=== PATIENT | male | born 1970 | race Hispanic/Latino ===

== ENCOUNTER 2021-06-22 22:37 | Inpatient (IN) | payer OTHER, SELFPAY ==
[~2021-06-22] VITALS: Ht 167.6 cm; Wt 83.3 kg
[2021-06-22 22:45] VITALS: BP 135/91
[2021-06-22] MEDS ORDERED: AZITHROMYCIN 500MG VIAL IVPB ONE (23:30)
[2021-06-22] MEDS ORDERED: CEFTRIAXONE 1G VIAL IVP ONE (23:30)
[2021-06-22] MEDS ORDERED: DEXAMETHASONE SOD PHOSPHATE 4 MG/ML 1ML VIAL IVP SCH (23:30)
[2021-06-22] MEDS ORDERED: 0.9% NACL 250ML IVPB ONE (23:30)
[2021-06-22 23:54] LABS: BASOPHILS % (AUTO) 0.4 % (0.0-5.0); EOSINOPHILS % (AUTO) 0.4 % (0.0-8.0); HEMATOCRIT 46.2 % (42-54); LYMPHOCYTES % (AUTO) 12.6 % (21.0-51.0); MEAN CORPUSCULAR HEMOGLOBIN 31.5 pg (27.0-33.0); MEAN CORPUSCULAR HGB CONC 34.6 g/dL (32.0-36.0); MEAN CORPUSCULAR VOLUME 90.9 fL (79-99); MONOCYTES % (AUTO) 10.3 % (3.0-13.0); NEUTROPHILS % (AUTO) 74.3 % (40.0-77.0); PLATELET COUNT (AUTO) 576 K/uL (130-400); RED BLOOD CELL COUNT(AUTO) 5.08 MIL/uL (4.50-6.20); RED CELL DISTRIBUTION WIDTH 11.9 % (11.0-15.5); WHITE BLOOD COUNT (AUTO) 7.5 K/uL (4.8-10.8)
[2021-06-23] VITALS (12 sets, daily range): BP systolic 112–145; BP diastolic 72–88
[2021-06-23 00:09] LABS: INR 1.07 (0.85-1.15); PROTHROMBIN TIME 11.6 SEC (9.6-11.6)
[2021-06-23 00:10] LABS: PARTIAL THROMBOPLASTIN TIME 22.8 SEC (26.3-35.5)
[2021-06-23] MEDS ORDERED: AZITHROMYCIN 500MG+NS 250ML 250 ML IV ONE (00:11)
[2021-06-23 00:13] LABS: ALBUMIN 2.8 g/dL (3.5-5.0); BILIRUBIN,TOTAL 0.6 mg/dL (0.2-1.0); CREATININE 0.7 mg/dL (0.5-1.5); POTASSIUM 4.5 mmol/L (3.5-5.1); TOTAL PROTEIN, SERUM 7.8 g/dL (6.0-8.3)
[2021-06-23 00:20] LABS: B-TYPE NATRIURETIC PEPTIDE < 5 pg/mL (0-100)
[2021-06-23 03:24] LABS: ABG BASE EXCESS 1.4 mmol/L (-2.0-3.0); ABG HCO3 24.3 mmol/L (21.0-28.0); ABG OXYGEN SATURATION 91.9 % (95.0-99.0); ABG PCO2 34 mmHg (35-48)
[2021-06-23] MEDS ORDERED: CEFTRIAXONE 1G VIAL IVP SCH (03:30)
[2021-06-23] MEDS ORDERED: PHARMACY COMMUNICATION MISC SCH (03:30)
[2021-06-23] MEDS ORDERED: ERGOCALCIFEROL (VITAMIN D2) 50,000 UNIT CAPSULE PO ONE (03:30)
[2021-06-23] MEDS ORDERED: 0.9%NACL 1000ML 1,000 ML IV SCH ×2 (03:30)
[2021-06-23] MEDS ORDERED: ERGOCALCIFEROL (VITAMIN D2) 50,000 UNIT CAPSULE ONE (04:47)
[2021-06-23] MEDS: DOXYCYCLINE 100MG+NS 250ML IV SCH ×2 (05:04→14:57)
[2021-06-23] MEDS ORDERED: ALBUTEROL INHALER 90MCG/INH IH ONE (05:04)
[2021-06-23] MEDS: DEXAMETHASONE SOD PHOSPHATE 4 MG/ML 1ML VIAL IVP SCH (05:04)
[2021-06-23] MEDS: ALBUTEROL INHALER 90MCG/INH IH SCH ×5 (05:04→23:11)
[2021-06-23] MEDS ORDERED: PHARMACY COMMUNICATION MISC STA (06:59)
[2021-06-23] MEDS ORDERED: COMPOUND IV REFRIGERATED 1 EACH IVSOLN MISC PRN (08:00)
[2021-06-23] MEDS ORDERED: REMDESIVIR (EUA) 520 200 MG in 0.9% NACL 250ML 250 ML IV ONE (08:00)
[2021-06-23 08:29] LABS: APPEARANCE,URINE Clear (CLEAR); BILIRUBIN,URINE Negative (NEGATIVE); COLOR,URINE Yellow (YELLOW); GLUCOSE, URINE (UA) Negative (NEGATIVE); KETONES,URINE 40 mg/dL (NEGATIVE); LEUKOCYTE ESTERASE ,URINE Negative (NEGATIVE); NITRATE,URINE Negative (NEGATIVE); OCCULT BLOOD,URINE Negative (NEGATIVE); PH,URINE 6.5 (5.0-8.0); PROTEIN,URINE Negative (NEGATIVE)
[2021-06-23 08:34] LABS: BACTERIA,URINE Rare /HPF (None Seen); MUCUS,URINE Rare LPF (None Seen); RBC,URINE 0-1 /HPF (0-1); SQUAMOUS EPITHELIAL CELL,UR Rare /HPF (0-2); WBC,URINE 0-1 /HPF (0-1)
[2021-06-23 09:30] LABS: CRP QUANTITATIVE 39.1 mg/L (0.00-9.0)
[2021-06-23] MEDS: ENOXAPARIN SODIUM 40 MG/0.4 ML SYRINGE SQ SCH (10:59)
[2021-06-23] MEDS: FAMOTIDINE 20MG TAB PO SCH (10:59)
[2021-06-23] MEDS: ASCORBIC ACID 500 MG TAB PO SCH (10:59)
[2021-06-23] MEDS: ZINC SULFATE 220 CAPSULE PO SCH (10:59)
[2021-06-24] VITALS (10 sets, daily range): BP systolic 109–133; BP diastolic 65–86
[2021-06-24] MEDS: DEXAMETHASONE SOD PHOSPHATE 4 MG/ML 1ML VIAL IVP SCH (03:23)
[2021-06-24] MEDS: DOXYCYCLINE 100MG+NS 250ML IV SCH (03:23)
[2021-06-24] MEDS: ALBUTEROL INHALER 90MCG/INH IH SCH ×3 (06:20→19:25)
[2021-06-24] MEDS: ZINC SULFATE 220 CAPSULE PO SCH (07:56)
[2021-06-24] MEDS: ASCORBIC ACID 500 MG TAB PO SCH (07:56)
[2021-06-24] MEDS: FAMOTIDINE 20MG TAB PO SCH (07:56)
[2021-06-24] MEDS: ENOXAPARIN SODIUM 40 MG/0.4 ML SYRINGE SQ SCH (07:57)
[2021-06-24] MEDS ORDERED: PHARMACY COMMUNICATION-LABS AST AND ALT PLEASE MISC STA (08:19)
[2021-06-24 08:51] LABS: BASOPHILS % (AUTO) 0.2 % (0.0-5.0); HEMATOCRIT 41.7 % (42-54); LYMPHOCYTES % (AUTO) 13.6 % (21.0-51.0); MEAN CORPUSCULAR HEMOGLOBIN 31.3 pg (27.0-33.0); MEAN CORPUSCULAR HGB CONC 34.1 g/dL (32.0-36.0); MEAN CORPUSCULAR VOLUME 92.1 fL (79-99); MONOCYTES % (AUTO) 4.2 % (3.0-13.0); NEUTROPHILS % (AUTO) 80.3 % (40.0-77.0); PLATELET COUNT (AUTO) 571 K/uL (130-400); RED BLOOD CELL COUNT(AUTO) 4.53 MIL/uL (4.50-6.20); RED CELL DISTRIBUTION WIDTH 12.1 % (11.0-15.5); WHITE BLOOD COUNT (AUTO) 8.2 K/uL (4.8-10.8)
[2021-06-24 09:07] LABS: ALBUMIN 2.6 g/dL (3.5-5.0); BILIRUBIN,TOTAL 0.5 mg/dL (0.2-1.0); CREATININE 0.8 mg/dL (0.5-1.5); CRP QUANTITATIVE 17.8 mg/L (0.00-9.0); POTASSIUM 4.1 mmol/L (3.5-5.1); TOTAL PROTEIN, SERUM 6.5 g/dL (6.0-8.3)
[2021-06-24] MEDS: REMDESIVIR (EUA) 520 100 MG in 0.9% NACL 250ML 250 ML IV SCH (12:45)
[2021-06-24] MEDS: REMDESIVIR LABS MISC SCH (19:29)
[2021-06-25] VITALS (14 sets, daily range): BP systolic 102–138; BP diastolic 5–84
[2021-06-25] MEDS: DEXAMETHASONE SOD PHOSPHATE 4 MG/ML 1ML VIAL IVP SCH (03:36)
[2021-06-25] MEDS: ALBUTEROL INHALER 90MCG/INH IH SCH ×5 (05:49→23:54)
[2021-06-25] MEDS: REMDESIVIR LABS MISC SCH (05:50)
[2021-06-25 06:30] LABS: BASOPHILS % (AUTO) 0.2 % (0.0-5.0); EOSINOPHILS % (AUTO) 0.2 % (0.0-8.0); MEAN CORPUSCULAR HEMOGLOBIN 31.8 pg (27.0-33.0); MEAN CORPUSCULAR HGB CONC 34.6 g/dL (32.0-36.0); MEAN CORPUSCULAR VOLUME 91.9 fL (79-99); NEUTROPHILS % (AUTO) 78.8 % (40.0-77.0); PLATELET COUNT (AUTO) 551 K/uL (130-400); RED BLOOD CELL COUNT(AUTO) 4.46 MIL/uL (4.50-6.20); RED CELL DISTRIBUTION WIDTH 11.9 % (11.0-15.5); WHITE BLOOD COUNT (AUTO) 8.6 K/uL (4.8-10.8)
[2021-06-25] MEDS ORDERED: [UNRECOGNIZED DRUG - OTHER] MISC STA (06:48)
[2021-06-25 06:49] LABS: ALBUMIN 2.5 g/dL (3.5-5.0); BILIRUBIN,TOTAL 0.5 mg/dL (0.2-1.0); CREATININE 0.8 mg/dL (0.5-1.5); POTASSIUM 4.3 mmol/L (3.5-5.1); TOTAL PROTEIN, SERUM 6.3 g/dL (6.0-8.3)
[2021-06-25] MEDS: FAMOTIDINE 20MG TAB PO SCH (09:02)
[2021-06-25] MEDS: ASCORBIC ACID 500 MG TAB PO SCH (09:02)
[2021-06-25] MEDS: ENOXAPARIN SODIUM 40 MG/0.4 ML SYRINGE SQ SCH ×2 (09:02→19:57)
[2021-06-25] MEDS: ZINC SULFATE 220 CAPSULE PO SCH (09:02)
[2021-06-25] MEDS: REMDESIVIR (EUA) 520 100 MG in 0.9% NACL 250ML 250 ML IV SCH (13:05)
[2021-06-26] MEDS: DEXAMETHASONE SOD PHOSPHATE 4 MG/ML 1ML VIAL IVP SCH (03:58)
[2021-06-26] MEDS: REMDESIVIR LABS MISC SCH (04:22)
[2021-06-26 04:28] VITALS: BP 110/69
[2021-06-26 05:19] LABS: BASOPHILS % (AUTO) 0.3 % (0.0-5.0); EOSINOPHILS % (AUTO) 0.7 % (0.0-8.0); HEMATOCRIT 38.1 % (42-54); LYMPHOCYTES % (AUTO) 27.7 % (21.0-51.0); MEAN CORPUSCULAR HEMOGLOBIN 31.6 pg (27.0-33.0); MEAN CORPUSCULAR HGB CONC 34.4 g/dL (32.0-36.0); MONOCYTES % (AUTO) 13.4 % (3.0-13.0); PLATELET COUNT (AUTO) 535 K/uL (130-400); RED BLOOD CELL COUNT(AUTO) 4.14 MIL/uL (4.50-6.20); RED CELL DISTRIBUTION WIDTH 12.1 % (11.0-15.5); WHITE BLOOD COUNT (AUTO) 5.7 K/uL (4.8-10.8)
[2021-06-26 05:32] LABS: ALBUMIN 2.3 g/dL (3.5-5.0); BILIRUBIN,TOTAL 0.5 mg/dL (0.2-1.0); CREATININE 0.8 mg/dL (0.5-1.5); CRP QUANTITATIVE 6.3 mg/L (0.00-9.0); POTASSIUM 3.7 mmol/L (3.5-5.1); TOTAL PROTEIN, SERUM 5.8 g/dL (6.0-8.3)
[2021-06-26] MEDS: ALBUTEROL INHALER 90MCG/INH IH SCH ×3 (06:36→18:56)
[2021-06-26 08:13] VITALS: BP 105/64
[2021-06-26] MEDS: FAMOTIDINE 20MG TAB PO SCH (09:08)
[2021-06-26] MEDS: ASCORBIC ACID 500 MG TAB PO SCH (09:08)
[2021-06-26] MEDS: ZINC SULFATE 220 CAPSULE PO SCH (09:08)
[2021-06-26] MEDS: ENOXAPARIN SODIUM 40 MG/0.4 ML SYRINGE SQ SCH ×2 (09:08→20:33)
[2021-06-26 10:53] VITALS: BP 109/69
[2021-06-26] MEDS: REMDESIVIR (EUA) 520 100 MG in 0.9% NACL 250ML 250 ML IV SCH (14:03)
[2021-06-26 16:27] VITALS: BP 112/71
[2021-06-26 19:52] VITALS: BP 109/65
[2021-06-26 23:50] VITALS: BP 102/66
[2021-06-27] MEDS: ALBUTEROL INHALER 90MCG/INH IH SCH ×3 (00:25→11:17)
[2021-06-27] MEDS: DEXAMETHASONE SOD PHOSPHATE 4 MG/ML 1ML VIAL IVP SCH (03:27)
[2021-06-27 03:52] VITALS: BP 107/63
[2021-06-27 05:20] LABS: BASOPHILS % (AUTO) 0.2 % (0.0-5.0); EOSINOPHILS % (AUTO) 0.4 % (0.0-8.0); HEMATOCRIT 39.2 % (42-54); LYMPHOCYTES % (AUTO) 27.5 % (21.0-51.0); MEAN CORPUSCULAR HEMOGLOBIN 31.4 pg (27.0-33.0); MEAN CORPUSCULAR HGB CONC 33.9 g/dL (32.0-36.0); MEAN CORPUSCULAR VOLUME 92.7 fL (79-99); PLATELET COUNT (AUTO) 514 K/uL (130-400); RED BLOOD CELL COUNT(AUTO) 4.23 MIL/uL (4.50-6.20); WHITE BLOOD COUNT (AUTO) 5.3 K/uL (4.8-10.8)
[2021-06-27 05:40] LABS: ALBUMIN 2.4 g/dL (3.5-5.0); BILIRUBIN,TOTAL 0.4 mg/dL (0.2-1.0); CREATININE 0.8 mg/dL (0.5-1.5); CRP QUANTITATIVE 5.6 mg/L (0.00-9.0); POTASSIUM 4.1 mmol/L (3.5-5.1); TOTAL PROTEIN, SERUM 5.7 g/dL (6.0-8.3)
[2021-06-27] MEDS: REMDESIVIR LABS MISC SCH (06:00)
[2021-06-27 08:04] VITALS: BP 103/65
[2021-06-27] MEDS: ZINC SULFATE 220 CAPSULE PO SCH (09:02)
[2021-06-27] MEDS: ASCORBIC ACID 500 MG TAB PO SCH (09:02)
[2021-06-27] MEDS: FAMOTIDINE 20MG TAB PO SCH (09:02)
[2021-06-27] MEDS: ENOXAPARIN SODIUM 40 MG/0.4 ML SYRINGE SQ SCH (09:04)
[2021-06-27 10:50] VITALS: BP 108/67
[2021-06-27] MEDS ORDERED: APIX2.5T PO (11:08)
[2021-06-27] MEDS ORDERED: PANT40TA PO (11:08)
[2021-06-27] MEDS ORDERED: DEXA6TAB7 PO (11:08)
[2021-06-27] MEDS: REMDESIVIR (EUA) 520 100 MG in 0.9% NACL 250ML 250 ML IV SCH (14:55)
[2021-06-28] MEDS ORDERED: ALBUTEROL INHALER 90MCG/INH IH SCH
== END 2021-06-27 17:15 | disposition home or self-care (01) | DRG 177 ==
LOC: EDH 22:37 → EDHIP 22:38 → 4BH 06-25 20:51
PROVIDERS: ADMIT Internal Medicine; ATTEND Internal Medicine
PROC: XW033E5 Introduction of Remdesivir Anti-infective into Peripheral Vein, Percutaneous Approach, New Technology Group 5 (ICD-10-PCS; principal; 2021-06-23)
PROC: 5A0935A Assistance with Respiratory Ventilation, Less than 24 Consecutive Hours, High Flow/Velocity Cannula (ICD-10-PCS; 2021-06-23)
PROC: 5A0935A Assistance with Respiratory Ventilation, Less than 24 Consecutive Hours, High Flow/Velocity Cannula (ICD-10-PCS; 2021-06-25)
DX: U07.1 COVID-19 (principal); J96.01 Acute respiratory failure with hypoxia; J12.82 Pneumonia due to coronavirus disease 2019; E66.01 Morbid (severe) obesity due to excess calories; Z68.29 Body mass index [BMI] 29.0-29.9, adult
CPT/HCPCS: 36415; 36600; 71045; 80053; 81001; 82550; 82728; 82803; 83615; 83880; 84145; 84484; 85025; 85378; 85610; 85730; 86140; 93005; 93970; 94760; G0378; J0456; J0696; J1100; J1650; J3490; J7030; J7050